=== PATIENT | female | born 1970 | race Caucasian/White ===

== ENCOUNTER 2017-01-20 22:32 | Emergency (ER) | payer OTHER ==
[2017-01-20 22:45] VITALS: BMI 30.6
--- NOTE | 2017-01-20 23:14 | PDOC ---
History of Present Illness - General History Source: Patient Exam Limitations: No Limitations - History of Present Illness Initial Comments: 01/20/17 23:26 The patient is a 68 year old female with significant past medical history of hypertension and diabetes who presents to the ED with 2 days of numbness to the left side of the face and left arm. Patient reports she was in her usual state of health when she suddenly felt numbness to her left side of the face and left arm. She describes the numbness as a pins and needle sensation. Patient denies weakness, facial droop, slurred speech, or bladder/bowel incontinence. She states when the numbness is around her lips it makes her lips feel inflamed. Patient also reports a headache yesterday that resolved on its own. 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 The patient denies fever, chills, cough, SOB, chest pain, and palpitations. The patient denies abdominal pain, nausea, vomiting, and diarrhea. Allergies: NKDA Social History: No alcohol, tobacco, or drug use reported. Past Surgical History: appendectomy PCP: None reported <Perri oTm - Last Filed: 01/21/17 00:15> - General History Source: Patient <Ramiro Woodson - Last Filed: 01/21/17 01:38> - General Chief Complaint: CVA/TIA Stated Complaint: NUMBNESS Time Seen by Provider: 01/20/17 23:13 NIH Stroke Scale - Last Known Well Date/Time & Onset Date Last Known Well: 01/19/17 Time Last Known Well: 08:00 - Initial Evaluation Level of consciousness: Alert Ask patient the month and their age: Answers both correctly Ask patient to open & close eyes; make fist and let go: Obeys both correctly Best gaze (horizontal eye movement): Normal Visual field testing: No visual field loss (Pt blind in left eye.) Facial paresis (Show teeth/raise eyebrows/close eyes tight): Normal symmetrical movement Motor Function: Left Arm: Normal Motor Function: Right Arm: Normal (extends arm 90 (or 45) degrees for 10 seconds without drift Motor Function: Left Leg: Normal (extends leg 30 degrees for 5 seconds without drift) Motor Function: Right Leg: Normal (extends leg 30 degrees for 5 seconds without drift) Limb Ataxia: No ataxia Sensory(Use pinprick test arms,legs,trunk,face/side to side): Normal Best language (Describe picture, name items, read sentences): No Aphasia Dysarthria (read several words): Normal articulation Extinction and Inattention: No abnormality - Total Score NIH Stroke Scale Score: 0 <Ramiro Woodson - Last Filed: 01/21/17 01:38> tPA Exclusion checklist 3-4.5h - Time Elapsed Date last known well: 01/19/17 Time last known well: 08:17 Elaspsed time: 1 Day(s) and 17 Hour(s) and 17 Minutes - Thrombolytic Therapy Candidate Is patient eligible for thrombolytic therapy: No - Exclusion Criteria 3-4.5 hr SBP greater than 185 or DBP greater than 110mmHg despite tx: Yes Recent IC/spinal surgery,head trauma or stroke<3mos.: No Hx IC hemorrhage, IC neoplasm, AV malformation or aneurysm: No Active internal bleeding: No Blding diathesis(low plt ct, inc PTT,INR>1.7 or use of NOAC): No CT demonstrates multilobar infarct(>1/3 cerebral hemiphere): No Arterial puncture at noncompressible site in previous 7 days: No Blood glucose concentration less than 50mg/dL (2.7mmol/L): No - Relative Exclusion Criteria 3-4.5 hr Life expectancy <1 yr or severe co-morbid illness: No : No Patient/family refused: No Rapid improvement: No Stroke severity too mild: No Recent acute KS (w/in previous 3 months): No Seizure at onset with postictal residual neuro impairments: No Major surgery or serious trauma w/in previous 14 days: No - Add'l Relative Exclusion 3-4.5 hr Age > 80: No Hx of both diabetes AND prior ischemic stroke: No Taking an oral anticoagulant regardless of INR: No NIHSS >25: No - Ineligibility reason(s) Reasons No tPA given: Outside of window - delayed arrival, See reason(s) noted above (diastolic BP is 115) <Ramiro Woodson - Last Filed: 01/21/17 01:38> Past History <Perri Tom - Last Filed: 01/21/17 00:15> - Past Medical History Diabetes: Yes HTN: Yes - Surgical History Appendectomy: Yes - Psycho/Social/Smoking Cessation Hx Anxiety: No Suicidal Ideation: No Smoking History: Never smoked Hx Alcohol Use: No Drug/Substance Use Hx: No Substance Use Type: None <Ramiro Woodson - Last Filed: 01/21/17 01:38> - Past Medical History Allergies/Adverse Reactions: Allergies Allergy/AdvReac Type Severity Reaction Status Date / Time No Known Allergies Allergy Verified 01/20/17 22:42 Home Medications: Ambulatory Orders Lisinopril [Prinivil -] 40 mg PO DAILY 07/14/16 Metformin HCl 500 mg PO BID 07/14/16 Review of Systems - Review of Systems Able to Perform ROS?: Yes Comments:: 01/20/17 23:26 CONSTITUTIONAL: Absent: fever, chills, diaphoresis, generalized weakness, malaise, loss of appetite HEENT: Absent: rhinorrhea, nasal congestion, throat pain, throat swelling, difficulty swallowing, mouth swelling, ear pain, eye pain, visual Changes CARDIOVASCULAR: Absent: chest pain, syncope, palpitations, irregular heart rate, lightheadedness , peripheral edema RESPIRATORY: Absent: cough, shortness of breath, dyspnea with exertion, orthopnea, wheezing, stridor, hemoptysis GASTROINTESTINAL: Absent: abdominal pain, abdominal distension, nausea, vomiting, diarrhea, constipation, melena, hematochezia GENITOURINARY: Absent: dysuria, frequency, urgency, hesitancy, hematuria, flank pain, genital pain MUSCULOSKELETAL: Absent: myalgia, arthralgia, joint swelling SKIN: Absent: rash, itching, pallor HEMATOLOGIC/IMMUNOLOGIC: Absent: easy bleeding, easy bruising, lymphadenopathy, frequent infections ENDOCRINE: Absent: unexplained weight gain, unexplained weight loss, heat intolerance, cold intolerance NEUROLOGIC: +numbness in the left-side of the face and left arm, headache Absent: focal weakness, dizziness, unsteady gait, seizure, mental status changes, bladder or bowel incontinence PSYCHIATRIC: Absent: anxiety, depression, suicidal or homicidal ideation, hallucinations. <Perri Tom - Last Filed: 01/21/17 00:15> *Physical Exam - Vital Signs Last Vital Signs Temp Pulse Resp BP Pulse Ox 97.7 F 67 18 197/115 99 01/20/17 22:43 01/20/17 22:43 01/20/17 22:43 01/20/17 22:43 01/20/17 22:43 - Physical Exam Comments: 01/20/17 23:26 GENERAL: Well developed, well nourished. Awake and alert. No acute distress. HEENT: Normocephalic, atraumatic. PERRLA, EOMI in the right eye. No vision in the left eye. No conjunctival pallor. Sclera are non-icteric. Moist mucous membranes. Oropharynx is clear. NECK: Supple. Full ROM. No JVD. Carotid pulses 2+ and symmetric, without bruits. No thyromegaly. No lymphadenopathy. CARDIOVASCULAR: Regular rate and rhythm. No murmurs, rubs, or gallops. Distal pulses are 2+ and symmetric. PULMONARY: No evidence of respiratory distress. Lungs clear to auscultation bilaterally. No wheezing, rales or rhonchi. ABDOMINAL: Soft. Non-tender. Non-distended. No rebound or guarding. No organomegaly. Normoactive bowel sounds. MUSCULOSKELETAL Normal range of motion at all joints. No bony deformities or tenderness. No CVA tenderness. EXTREMITIES: No cyanosis. No clubbing. No edema. No calf tenderness. SKIN: Warm and dry. Normal capillary refill. No rashes. No jaundice. NEUROLOGICAL: Alert, awake, appropriate. Cranial nerves 2-12 intact. No deficits to light touch and temperature in face, upper extremities and lower extremities. No motor deficits in the in face, upper extremities and lower extremities. Normoreflexic in the upper and lower extremities. Normal speech. PSYCHIATRIC: Cooperative. Good eye contact. Appropriate mood and affect. <Perri Tom - Last Filed: 01/21/17 00:15> - Vital Signs Last Vital Signs Temp Pulse Resp BP Pulse Ox 97.7 F 67 18 197/115 99 01/20/17 22:43 01/20/17 22:43 01/20/17 22:43 01/20/17 22:43 01/20/17 22:43 <Ramiro Woodson - Last Filed: 01/21/17 01:38> Heart Score/ECG Review - ECG Impressions Comment:: 01/21/17 00:15 NSR @65bpm Cannot r/o Anterior infarct, age undetermined Abnormal ECG <Perri Tom - Last Filed: 01/21/17 00:15> ED Treatment Course - LABORATORY CBC & Chemistry Diagram: 01/20/17 23:40 01/20/17 23:40 <Perri Tom - Last Filed: 01/21/17 00:15> - LABORATORY CBC & Chemistry Diagram: 01/20/17 23:40 01/20/17 23:40 <Ramiro Woodson - Last Filed: 01/21/17 01:38> Medical Decision Making - Medical Decision Making 01/21/17 01:34 Dr. Woodson: The scribe's documentation has been prepared under my direction and personally reviewed by me in its entirery. I confirm that the note above accurately reflects all work, treatment, procedures, and medical decision making performed by me. BP now is 130's/80's after treatment Pt is labs and Ct scan are all negative. Pt be discharged and follow ujp with her pcp to discuss BP control. <Ramiro Woodson - Last Filed: 01/21/17 01:38> *DC/Admit/Observation/Transfer - Attestations Scribe Attestion: 01/20/17 23:27 Documentation prepared by Perri Tom, acting as esthetician and manager medical spa for Ramiro Woodson MD <Perri Tom - Last Filed: 01/21/17 00:15> - Discharge Dispostion Admit: No <Ramiro Woodson - Last Filed: 01/21/17 01:38> Diagnosis at time of Disposition: Hypertension Qualifiers: Hypertension type: essential hypertension Qualified Code(s): I10 - Essential ( primary) hypertension - Discharge Dispostion Disposition: HOME Condition at time of disposition: Stable - Referrals Referrals: Jens Reico MD [Staff Physician] - - Patient Instructions Printed Discharge Instructions: High Blood Pressure Additional Instructions: continue taking your medication. Follow up with your doctor as soon as possible to discuss your blood pressure medication
[2017-01-21 00:03] LABS: BASOPHIL 0.9 % (0-2.0); EOSINOPHIL 10.5 % (0-4.5); MCH 29.8 pg (25.7-33.7); MCHC 33.4 g/dl (32.0-36.0); MEAN CELL VOLUME 89.5 fl (80-96); NEUTROPHILS 44.6 % (42.8-82.8); PLATELET COUNT 182 K/MM3 (134-434); RDW 13.7 % (11.6-15.6); WHITE BLOOD COUNT 7.4 K/mm3 (4.0-10.0)
[2017-01-21 00:28] LABS: INR 0.93 (0.82-1.09); PROTHROMBIN TIME (PATIENT) 10.2 SEC (9.98-11.88)
[2017-01-21 00:39] LABS: ALBUMIN 3.7 g/dl (3.4-5.0); ANION GAP 10 (8-16); CALCIUM 8.5 mg/dL (8.5-10.1); CO2 27 mmol/L (21-32); CREATININE 0.8 mg/dL (0.55-1.02); GLUCOSE,RANDOM 178 mg/dL (74-106); SGOT/AST 21 U/L (15-37); SGPT/ALT 40 U/L (12-78)
[2017-01-21 00:42] LABS: ALK PHOS 125 U/L (45-117); BILIRUBIN,TOTAL 0.4 mg/dL (0.2-1.0); TOT PROT 6.7 g/dl (6.4-8.2); TROPONIN I 0.02 ng/ml (0.00-0.05)
[2017-01-21] MEDS ORDERED: hydrALAZINE HCL 20 MG/ML VIAL IVPUSH ONE (01:10)
[2017-01-21 01:11] VITALS: PULSE 66; TEMP 98
[2017-01-21] MEDS ORDERED: hydrALAZINE HCL 20 MG/ML VIAL ONE (01:12)
[2017-01-21 01:31] VITALS: BP 120/78
--- NOTE | 2017-01-21 10:48 | EKG ---
Test Reason : Blood Pressure : / mmHG Vent. Rate : 065 BPM Atrial Rate : 065 BPM P-R Int : 178 ms QRS Dur : 088 ms QT Int : 424 ms P-R-T Axes : 030 006 008 degrees QTc Int : 440 ms NORMAL SINUS RHYTHM CANNOT RULE OUT ANTERIOR INFARCT , AGE UNDETERMINED ABNORMAL ECG WHEN COMPARED WITH ECG OF 14-JUL-2016 16:49, NO SIGNIFICANT CHANGE WAS FOUND Confirmed by VANESA ROME, ÁNGELA ([id number]) on 01/21/2017 10:47:30 AM Referred By: Confirmed By:ÁNGELA ALEXIS MD
== END 2017-01-21 01:48 | disposition home or self-care (01) ==
LOC: JER 22:32
PROC: 3E033GC Introduction of Other Therapeutic Substance into Peripheral Vein, Percutaneous Approach (ICD-10-PCS; principal; 2017-01-20)
DX: I10 Essential (primary) hypertension (principal); E11.9 Type 2 diabetes mellitus without complications; H54.42 Blindness, left eye, normal vision right eye
CPT/HCPCS: 36415; 70450-TC; 80053; 82550; 82553; 84484; 85025; 85610; 93005; 93010; 99283-25

== ENCOUNTER 2018-08-17 09:01 | Emergency (ER) | payer SELFPAY ==
[2018-08-17 09:06] VITALS: BP 166/89; PULSE 56; TEMP 98; BMI 33.3
[2018-08-17] MEDS ORDERED: KETOROLAC TROMETHAMINE 30 MG/1 ML VIAL IVPUSH ONE (10:59)
[2018-08-17] MEDS ORDERED: SODIUM CHLORIDE 1,000 ML IV STA (10:59)
[2018-08-17] MEDS ORDERED: TAMSULOSIN HCL 0.4 MG CAP.ER.24H (FP) PO ONE ×2 (10:59→11:00)
--- NOTE | 2018-08-17 11:11 | PDOC ---
History of Present Illness - General Chief Complaint: Pain, Acute Stated Complaint: LEFT FLANK PAIN, HX OF KIDNEY STONE Time Seen by Provider: 08/17/18 10:34 History Source: Patient - History of Present Illness Timing/Duration: reports: getting worse Quality: reports: severe Past History - Past Medical History Allergies/Adverse Reactions: Allergies Allergy/AdvReac Type Severity Reaction Status Date / Time No Known Allergies Allergy Verified 08/17/18 12:33 Home Medications: Ambulatory Orders Lisinopril [Prinivil -] 40 mg PO DAILY 07/14/16 metFORMIN HCL [Metformin HCl] 500 mg PO BID 07/14/16 Cyclobenzaprine HCl [Flexeril -] 10 mg PO TID #9 tablet 08/17/18 Ibuprofen [Motrin -] 2 tab PO Q6H #30 tablet 08/17/18 Tramadol HCl 50 mg PO Q6H #15 tablet MDD 200mg 08/17/18 COPD: No DVT: No Diabetes: Yes HTN: Yes Kidney Stones: Yes - Surgical History Appendectomy: Yes - Suicide/Smoking/Psychosocial Hx Smoking History: Never smoked Information on smoking cessation initiated: No Hx Alcohol Use: No Drug/Substance Use Hx: No Substance Use Type: None Review of Systems - Review of Systems Constitutional: No: Chills, Fever ABD/GI: No: Nausea, Vomiting : Yes: Flank Pain. No: Burning, Dysuria, Discharge, Hematuria *Physical Exam - Vital Signs Last Vital Signs Temp Pulse Resp BP Pulse Ox 98 F 56 L 18 166/89 98 08/17/18 09:03 08/17/18 09:03 08/17/18 09:03 08/17/18 09:03 08/17/18 09:03 - Physical Exam General Appearance: Yes: Appropriately Dressed, Moderate Distress HEENT: positive: Normal Voice Neck: positive: Supple Respiratory/Chest: negative: Respiratory Distress Gastrointestinal/Abdominal: positive: Tender (to L flank), Soft. negative: Distended, Guarding Musculoskeletal: positive: CVA Tenderness (L) Integumentary: positive: Dry, Warm Neurologic: positive: Fully Oriented, Alert, Normal Mood/Affect ED Treatment Course - LABORATORY CBC & Chemistry Diagram: 08/17/18 11:20 08/17/18 11:20 - RADIOLOGY Radiology Studies Ordered: Category Date Time Status ABDOMEN & PELVIS CT W/O CONTR [CT] Stat CT Scan 08/17/18 10:59 Ordered Medical Decision Making - Medical Decision Making 08/17/18 11:09 48-year-old female, no significant history, presents with left flank pain 2 weeks. No nausea, vomiting, dysuria, change in bowel movements, fever or chills. No known trauma. Seen at [facility] last week for same and diagnosed with kidney stone on CAT scan, but does not remember location of stone per pt. On Motrin at home with no relief. Sent to ED for another CAT scan by her urologist, Dr. Newman See exam Renal colic Dx w/ L renal stone on CT last week at [facility] No dysuria n/v/f/c -pain control -IVF -labs -CT 08/17/18 14:[address] unremarkable. Pt better w/ meds. Will dc w/ pain control for possible MSK back pain. Instructed to f/u with PMD *DC/Admit/Observation/Transfer Diagnosis at time of Disposition: Low back pain Qualifiers: Chronicity: acute Back pain laterality: left Sciatica presence: without sciatica Qualified Code(s): M54.5 - Low back pain - Discharge Dispostion Disposition: HOME Condition at time of disposition: Improved - Prescriptions Prescriptions: Cyclobenzaprine HCl [Flexeril -] 10 mg PO TID #9 tablet Ibuprofen [Motrin -] 2 tab PO Q6H #30 tablet Tramadol HCl 50 mg PO Q6H #15 tablet MDD 200mg - Referrals - Patient Instructions Printed Discharge Instructions: Low Back Pain Additional Instructions: Your blood work and CAT scan were normal today. The cause of your back pain could possibly be muscular. Take medications as prescribed and follow-up with your PMD if pain persists - Post Discharge Activity
--- NOTE | 2018-08-17 11:19 | PDOC ---
*Physical Exam - Vital Signs Last Vital Signs Temp Pulse Resp BP Pulse Ox 98 F 56 L 18 166/89 98 08/17/18 09:03 08/17/18 09:03 08/17/18 09:03 08/17/18 09:03 08/17/18 09:03 - Physical Exam Comments: 08/17/18 11:18 The patient was examined by [ROCIO Esteves] under my direct supervision. I personally evaluated the patient. I concur with the above findings and the plan of care.
[2018-08-17 11:53] LABS: BASO % 1.4 % (0-2.0); EOS % 12.9 % (0-4.5); HEMATOCRIT 40.3 % (32.4-45.2); HEMOGLOBIN 13.4 GM/dL (10.7-15.3); LYMPH % 38.2 % (8-40); MCH 29.2 pg (25.7-33.7); MCHC 33.3 g/dl (32.0-36.0); MEAN CELL VOLUME 87.6 fl (80-96); MEAN PLT VOLUME 10.3 fl (7.5-11.1); MONO % 6.3 % (3.8-10.2); NEUT % 41.2 % (42.8-82.8); PLATELET COUNT 216 K/MM3 (134-434); RDW 13.7 % (11.6-15.6); WHITE BLOOD COUNT 6.2 K/mm3 (4.0-10.0)
[2018-08-17 11:54] LABS: URINE APPEARANCE CLEAR; URINE BILIRUBIN NEGATIVE (<2.0 mg/dL); URINE COLOR STRAW; URINE GLUCOSE (UA) NEGATIVE (NEGATIVE); URINE KETONE NEGATIVE (NEGATIVE); URINE LEUK ESTERASE NEGATIVE (NEGATIVE); URINE NITRITE NEGATIVE (NEGATIVE); URINE PROTEIN NEGATIVE (NEGATIVE); URINE UROBILINOGEN NEGATIVE mg/dL (0.2-1.0)
[2018-08-17] MEDS ORDERED: KETOROLAC TROMETHAMINE 30 MG/1 ML VIAL ONE (12:06)
[2018-08-17] MEDS ORDERED: TAMSULOSIN HCL 0.4 MG CAP.ER.24H (FP) ONE (12:06)
[2018-08-17 12:58] LABS: ALBUMIN 3.9 g/dl (3.4-5.0); ALK PHOS 103 U/L (45-117); ANION GAP 9 MMOL/L (8-16); BILIRUBIN,TOTAL 0.6 mg/dL (0.2-1); BLOOD UREA NITROGEN 12 mg/dL (7-18); CALCIUM 9.2 mg/dL (8.5-10.1); CHLORIDE 108 mmol/L (98-107); CO2 22 mmol/L (21-32); CREATININE 0.7 mg/dL (0.55-1.3); GLUCOSE,RANDOM 173 mg/dL (74-106); POTASSIUM 4.4 mmol/L (3.5-5.1); SGOT/AST 23 U/L (15-37); SGPT/ALT 45 U/L (13-61); SODIUM 140 mmol/L (136-145); TOT PROT 7.4 g/dl (6.4-8.2)
[2018-08-17] MEDS ORDERED: traMADol HCL 50 MG TABLET PO ONE (14:57)
[2018-08-17] MEDS ORDERED: traMADol HCL 50 MG TABLET ONE (15:13)
== END 2018-08-17 15:30 | disposition home or self-care (01) ==
LOC: JER 09:01
PROC: 3E0333Z Introduction of Anti-inflammatory into Peripheral Vein, Percutaneous Approach (ICD-10-PCS; principal; 2018-08-17)
PROC: 3E0337Z Introduction of Electrolytic and Water Balance Substance into Peripheral Vein, Percutaneous Approach (ICD-10-PCS; 2018-08-17)
DX: M54.5 Low back pain (principal)
CPT/HCPCS: 36415; 74176-TC; 80053; 81003; 84703; 85025; 99282-25; J7030

== ENCOUNTER 2018-09-13 15:16 | Emergency (ER) | payer SELFPAY ==
[2018-09-13 15:23] VITALS: BP 177/98; PULSE 86; TEMP 98; BMI 32.9
[2018-09-13] MEDS ORDERED: DIPHTH,PERTUSS(ACELL),TET 0.5 ML DISP.SYRIN IM ONE (15:24)
--- NOTE | 2018-09-13 15:24 | PDOC ---
Rapid Medical Evaluation Chief Complaint: Injury Time Seen by Provider: 09/13/18 15:22 Medical Evaluation: Allergies Allergy/AdvReac Type Severity Reaction Status Date / Time No Known Allergies Allergy Verified 09/13/18 15:21 09/13/18 15:22 Pt presents for laceration to L pinky finger. Cut with a knife just now. Unsure of last tetanus shot Exam: L 5th finger wrapped. Blood on the bandage Orders: Tetanus Pt to proceed to ED for further eval. Discharge Disposition - Diagnosis Laceration - Referrals - Patient Instructions - Post Discharge Activity
--- NOTE | 2018-09-13 15:58 | PDOC ---
History of Present Illness - General Chief Complaint: Injury Stated Complaint: INJURY, LT FINGER Time Seen by Provider: 09/13/18 15:22 - History of Present Illness Initial Comments: 09/13/18 15:54 48-year-old female with past medical history significant for diabetes and hypertension presents for a laceration of her left fifth digit. She states she was cutting potato and cut into her finger. She treated it with dry gauze and reported to the emergency room for evaluation Past History - Past Medical History Allergies/Adverse Reactions: Allergies Allergy/AdvReac Type Severity Reaction Status Date / Time No Known Allergies Allergy Verified 09/13/18 15:21 Home Medications: Ambulatory Orders Metoclopramide HCl 10 mg PO QID #30 tablet 03/15/15 Lisinopril [Prinivil -] 40 mg PO DAILY 07/14/16 metFORMIN HCL [Metformin HCl] 500 mg PO BID 07/14/16 Cyclobenzaprine HCl [Flexeril -] 10 mg PO TID #9 tablet 08/17/18 Ibuprofen [Motrin -] 2 tab PO Q6H #30 tablet 08/17/18 Tramadol HCl 50 mg PO Q6H #15 tablet MDD 200mg 08/17/18 Cephalexin [Keflex] 500 mg PO QID #20 capsule 09/13/18 COPD: No DVT: No Diabetes: Yes HTN: Yes Kidney Stones: Yes - Surgical History Appendectomy: Yes - Suicide/Smoking/Psychosocial Hx Smoking Status: No Smoking History: Never smoked Have you smoked in the past 12 months: No Number of Cigarettes Smoked Daily: 0 Hx Alcohol Use: No Drug/Substance Use Hx: No Substance Use Type: None Hx Substance Use Treatment: No Review of Systems - Review of Systems Integumentary: Yes: See HPI All Other Systems: Reviewed and Negative *Physical Exam - Vital Signs Last Vital Signs Temp Pulse Resp BP Pulse Ox 98.0 F 86 18 177/98 H 99 09/13/18 15:21 09/13/18 15:21 09/13/18 15:21 09/13/18 15:21 09/13/18 15:21 - Physical Exam Comments: 09/13/18 15:55 HEAD: NC/AT EYES: Conjuntiva clear MS: Full ROM in all joints without edema NEUROLOGIC: No gross sensory or motor deficits, NVID SKIN: Normal color and temperature no lesions or rashes Left fifth finger has been unwrapped, wound was inspected. There is a subcentimeter dermal avulsion at the nailbed. The distal half of the nail of the fifth digit is gone along with part of the nailbed. There are no a to approximate.Flexor and extensor tendon function are preserved 09/13/18 15:56 Medical Decision Making - Medical Decision Making 09/13/18 15:56 Tetanus was updated. Prophylactic antibiotics were phoned in. Patient is diabetic. Surgicel dressing was placed after the wound was aseptically cleaned with Betadine normal saline *DC/Admit/Observation/Transfer Diagnosis at time of Disposition: Laceration - Discharge Dispostion Disposition: HOME Condition at time of disposition: Stable Decision to Admit order: No - Referrals Referrals: Tabitha Arora MD [Primary Care Provider] - Alejandro Camacho MD [Staff Physician] - - Patient Instructions Additional Instructions: Please keep the dressing that was applied in the emergency room on for 48 hours. After 48 hours may take off the dressing and wash her hand with soap and water. Please follow-up with hand surgery for further evaluation and treatment options. As a as well as monitoring. I dose of prophylactic antibiotics sent here pharmacy please take the entire course. Tylenol and Mortin as directed for pain - Post Discharge Activity
== END 2018-09-13 16:01 | disposition home or self-care (01) ==
LOC: JERFT 15:16
PROC: 0HQGXZZ Repair Left Hand Skin, External Approach (ICD-10-PCS; principal; 2018-09-13)
PROC: 3E0234Z Introduction of Serum, Toxoid and Vaccine into Muscle, Percutaneous Approach (ICD-10-PCS; 2018-09-13)
DX: S61.317A Laceration without foreign body of left little finger with damage to nail, initial encounter (principal); W26.0XXA Contact with knife, initial encounter; Y93.G1 Activity, food preparation and clean up; Y92.030 Kitchen in apartment as the place of occurrence of the external cause; Y99.8 Other external cause status
CPT/HCPCS: 90715; 99281-25

== ENCOUNTER 2018-11-26 15:50 | Observation (INO) | payer SELFPAY ==
[2018-11-26 15:59] VITALS: BMI 32.5
--- NOTE | 2018-11-26 16:07 | PDOC ---
History of Present Illness - General Chief Complaint: Chest Pain Stated Complaint: CHEST PAIN Time Seen by Provider: 11/26/18 16:06 Past History - Past Medical History Allergies/Adverse Reactions: Allergies Allergy/AdvReac Type Severity Reaction Status Date / Time No Known Allergies Allergy Verified 11/26/18 15:55 Home Medications: Ambulatory Orders Metoclopramide HCl 10 mg PO QID #30 tablet 03/15/15 Lisinopril [Prinivil -] 40 mg PO DAILY 07/14/16 metFORMIN HCL [Metformin HCl] 500 mg PO BID 07/14/16 Cyclobenzaprine HCl [Flexeril -] 10 mg PO TID #9 tablet 08/17/18 Ibuprofen [Motrin -] 2 tab PO Q6H #30 tablet 08/17/18 Tramadol HCl 50 mg PO Q6H #15 tablet MDD 200mg 08/17/18 Cephalexin [Keflex] 500 mg PO QID #20 capsule 09/13/18 COPD: No DVT: No Diabetes: Yes HTN: Yes Kidney Stones: Yes - Surgical History Appendectomy: Yes - Immunization History Immunization Up to Date: Yes - Suicide/Smoking/Psychosocial Hx Smoking Status: No Smoking History: Never smoked Have you smoked in the past 12 months: No Number of Cigarettes Smoked Daily: 0 Information on smoking cessation initiated: No Hx Alcohol Use: No Drug/Substance Use Hx: No Substance Use Type: None Hx Substance Use Treatment: No *Physical Exam - Vital Signs Last Vital Signs Temp Pulse Resp BP Pulse Ox 98.5 F 95 H 18 194/121 H 98 11/26/18 15:56 11/26/18 15:56 11/26/18 15:56 11/26/18 15:56 11/26/18 15:56 Moderate Sedation - Procedure Monitoring Vital Signs: Procedure Monitoring Vital Signs Temperature 98.5 F 11/26/18 15:56 Pulse Rate 95 H 11/26/18 15:56 Respiratory Rate 18 11/26/18 15:56 Blood Pressure 194/121 H 11/26/18 15:56 O2 Sat by Pulse Oximetry (%) 98 11/26/18 15:56 *DC/Admit/Observation/Transfer - Referrals Referrals: Tabitha Arora MD [Primary Care Provider] - - Patient Instructions - Post Discharge Activity
[2018-11-26] MEDS ORDERED: ASPIRIN 81 MG CHEWABLE TABLETS PO ONE (16:24)
[2018-11-26] MEDS ORDERED: NITROGLYCERIN SUBLINGUAL 1/200 0.3 MG BTL SL ONE (16:25)
[2018-11-26] MEDS ORDERED: ASPIRIN 81 MG CHEWABLE TABLETS ONE (16:27)
--- NOTE | 2018-11-26 16:35 | PDOC ---
History of Present Illness - General Chief Complaint: Chest Pain Stated Complaint: CHEST PAIN Time Seen by Provider: 11/26/18 16:06 History Source: Patient - History of Present Illness Initial Comments: 11/26/18 16:30 Patient is a 48F with history of HTN, DM, and obesity here today complaining of chest pain that has been ongoing for the past week. Patient states that the pain was initially intermittent but became constant today so she came in. She denies any modifying factors to the pain. Denies associated shortness of breath , fevers, chills, nausea, vomiting. Denies leg swelling, recent travel, estrogen use, prior blood clots. Denies abdominal pain, leg swelling, dysuria. Patient does not know what medications she takes for blood pressure, thinks maybe lisinopril. Does not take insulin but is not taking medication for diabetes at home and does not know what it is. Past History - Past Medical History Allergies/Adverse Reactions: Allergies Allergy/AdvReac Type Severity Reaction Status Date / Time No Known Allergies Allergy Verified 11/26/18 15:55 Home Medications: Ambulatory Orders Metoclopramide HCl 10 mg PO QID #30 tablet 03/15/15 Lisinopril [Prinivil -] 40 mg PO DAILY 07/14/16 metFORMIN HCL [Metformin HCl] 500 mg PO BID 07/14/16 Cyclobenzaprine HCl [Flexeril -] 10 mg PO TID #9 tablet 08/17/18 Ibuprofen [Motrin -] 2 tab PO Q6H #30 tablet 08/17/18 Tramadol HCl 50 mg PO Q6H #15 tablet MDD 200mg 08/17/18 Cephalexin [Keflex] 500 mg PO QID #20 capsule 09/13/18 COPD: No DVT: No Diabetes: Yes HTN: Yes Kidney Stones: Yes - Surgical History Appendectomy: Yes - Immunization History Immunization Up to Date: Yes - Suicide/Smoking/Psychosocial Hx Smoking Status: No Smoking History: Never smoked Have you smoked in the past 12 months: No Number of Cigarettes Smoked Daily: 0 Information on smoking cessation initiated: No Hx Alcohol Use: No Drug/Substance Use Hx: No Substance Use Type: None Hx Substance Use Treatment: No Review of Systems - Review of Systems Comments:: 11/26/18 16:33 GENERAL/CONSTITUTIONAL: No fever or chills. No weakness. HEAD, EYES, EARS, NOSE AND THROAT: No change in vision. No sore throat. CARDIOVASCULAR: +chest pain No shortness of breath RESPIRATORY: No cough, wheezing, or hemoptysis. GASTROINTESTINAL: No nausea, vomiting, diarrhea or constipation. GENITOURINARY: No dysuria, frequency, or change in urination. MUSCULOSKELETAL: No joint or muscle swelling or pain. No neck or back pain. SKIN: No rash NEUROLOGIC: No headache, vertigo, loss of consciousness, or change in strength/ sensation. HEMATOLOGIC/LYMPHATIC: No anemia, easy bleeding, or history of blood clots. ALLERGIC/IMMUNOLOGIC: No hives or skin allergy. *Physical Exam - Vital Signs Last Vital Signs Temp Pulse Resp BP Pulse Ox 98.5 F 95 H 18 194/121 H 98 11/26/18 15:56 11/26/18 15:56 11/26/18 15:56 11/26/18 15:56 11/26/18 15:56 - Physical Exam Comments: 11/26/18 16:33 GENERAL: Awake, alert, and fully oriented, in no acute distress HEAD: No signs of trauma, normocephalic, atraumatic CHEST: ?increase in pain with palpation along left sternal border, no signs of trauma EYES: PERRLA, EOMI, sclera anicteric, conjunctiva clear ENT: Auricles normal inspection, hearing grossly normal, nares patent, oropharynx clear without exudates. Moist mucosa NECK: Normal ROM, supple, no lymphadenopathy, JVD, or masses LUNGS: No distress, speaks full sentences, clear to auscultation bilaterally HEART: Regular rate and rhythm, normal S1 and S2, prominent mid-systolic click ABDOMEN: Soft, nontender, normoactive bowel sounds. No guarding, no rebound. No masses EXTREMITIES: Normal inspection, Normal range of motion, no edema. No clubbing or cyanosis. NEUROLOGICAL: Cranial nerves II through XII grossly intact. Normal speech, normal gait, no focal sensorimotor deficits SKIN: Warm, Dry, normal turgor, no rashes or lesions noted. Moderate Sedation - Procedure Monitoring Vital Signs: Procedure Monitoring Vital Signs Temperature 98.5 F 11/26/18 15:56 Pulse Rate 95 H 11/26/18 15:56 Respiratory Rate 18 11/26/18 15:56 Blood Pressure 194/121 H 11/26/18 15:56 O2 Sat by Pulse Oximetry (%) 98 11/26/18 15:56 Heart Score/ECG Review - History History: Moderately suspicious - Electrocardiogram EKG: Normal - Age Age: 45-65 - Risk Factors Risk Factors Heart Score: Yes Hx Hypercholesterolemia, Yes Hx Hypertension, Yes Hx Diabetes Based on the list above the patient has:: >/=3 risk factors or Hx atherosclerotic disease - Troponin Troponin: </= normal limit - Score Heart Score - Total: 4 ED Treatment Course - LABORATORY CBC & Chemistry Diagram: 11/26/18 16:30 11/26/18 16:30 - RADIOLOGY Radiology Studies Ordered: Category Date Time Status CHEST X-RAY PORTABLE* [RAD] Stat Radiology 11/26/18 16:24 Ordered - Medications Given in the ED: ED Medications Discontinued Medications Generic Name Dose Route Start Last Admin Trade Name Freq PRN Reason Stop Dose Admin Aspirin 162 mg 11/26/18 16:24 11/26/18 16:28 Asa - PO 11/26/18 16:25 162 mg ONCE ONE Administration Nitroglycerin 0.3 mg 11/26/18 16:25 11/26/18 16:28 Nitrostat - SL 11/26/18 16:26 0.3 mg ONCE ONE Administration Medical Decision Making - Medical Decision Making 11/26/18 16:35 Patient is 48F with history of HTN, DM, obesity here today complaining of chest pain. Vitals notable for BP 190/120, vitals repeated and similar. PERC negative. EKG shows normal sinus rhythm with rate of 78. No st elevations/depressions. T wave inversion in III. Normal axis. Normal intervals. Will likely obs given blood pressure and chest pain. Admit if workup shows more obvious etiology. 11/26/18 17:05 BP 166/99, chest pain improved with nitro. 11/26/18 17:15 CBC normal. CMP reassuring, elevated glucose. Trop undetectable. HEART score 4, will tele obs. *DC/Admit/Observation/Transfer Diagnosis at time of Disposition: Chest pain - Discharge Dispostion Condition at time of disposition: Stable Decision to Admit order: Yes - Referrals Referrals: Tabitha Arora MD [Primary Care Provider] - - Patient Instructions - Post Discharge Activity
--- NOTE | 2018-11-26 16:38 | PDOC ---
Attending Attestation - HPI HPI: 11/26/18 16:40 The patient is a 48 year old female with a significant past medical history of hypertension, diabetes, and obesity who presents to the emergency department with chest pain for about 1 week. The patient states that when her chest pain first onset it was intermittent but, is now constant. She states that her chest pain is worsened with palpitations. She denies any shortness of breath, cough, or PE risk factors. The patient denies any other symptoms or complaints. Documentation prepared by Seb Polanco, acting as chief medical director for Simran Amezcua MD. - Physicial Exam PE: 11/26/18 17:01 GENERAL: The patient is in no acute distress. HEAD: Normal with no signs of trauma. EYES: (+)left eye abnormality. PERRLA, EOMI, sclera anicteric, conjunctiva clear. ENT: Ears normal, nares patent, oropharynx clear without exudates. Moist mucous membranes. NECK: Normal range of motion, supple without lymphadenopathy, JVD, or masses. LUNGS: Breath sounds equal, clear to auscultation bilaterally. No wheezes, and no crackles. HEART:Regular rate and rhythm, normal S1 and S2 without murmur, rub or gallop. ABDOMEN: Soft, nontender, normoactive bowel sounds. No guarding, no rebound. No masses palpable. EXTREMITIES: Normal range of motion, no edema. No clubbing or cyanosis. No erythema, or tenderness. NEUROLOGICAL: Cranial nerves II through XII grossly intact. Normal speech. No focal neurological deficits. MUSCULOSKELETAL: Back non-tender to palpation, no CVA tenderness SKIN: Warm, Dry, normal turgor, no rashes or lesions noted. <Seb Polanco - Last Filed: 11/26/18 17:01> - Resident Resident Name: Rober Holder - ED Attending Attestation I have performed the following: I have examined & evaluated the patient, The case was reviewed & discussed with the resident, I agree w/resident's findings & plan, Exceptions are as noted - Medical Decision Making 11/26/18 17:04 CXR - nml, weak inspiration EKG - no ischemic changes 11/26/18 17:05 Laboratory Tests 11/26/18 16:30 WBC 8.0 Hgb 13.3 Hct 38.4 Plt Count 209 11/26/18 17:20 Laboratory Tests 11/26/18 11/26/18 16:30 16:30 INR 0.99 Sodium 137 Potassium 3.8 Chloride 102 Carbon Dioxide 29 BUN 14 Creatinine 0.9 Random Glucose 181 H Creatine Kinase 176 Troponin I < 0.02 Will admit to hospitalist service <Simran Amezcua - Last Filed: 11/30/18 07:24>
[2018-11-26 16:46] LABS: EOS % 12.5 % (0-4.5); HEMATOCRIT 38.4 % (32.4-45.2); HEMOGLOBIN 13.3 GM/dL (10.7-15.3); LYMPH % 30.8 % (8-40); MCH 29.8 pg (25.7-33.7); MCHC 34.7 g/dl (32.0-36.0); MEAN CELL VOLUME 85.8 fl (80-96); MONO % 5.3 % (3.8-10.2); NEUT % 50.4 % (42.8-82.8); PLATELET COUNT 209 K/MM3 (134-434); RBC 4.47 M/mm3 (3.60-5.2); RDW 13.5 % (11.6-15.6)
[2018-11-26 17:10] LABS: ALBUMIN 4.1 g/dl (3.4-5.0); ALK PHOS 130 U/L (45-117); ANION GAP 6 MMOL/L (8-16); BILIRUBIN,TOTAL 0.5 mg/dL (0.2-1); BLOOD UREA NITROGEN 14 mg/dL (7-18); CALCIUM 9.3 mg/dL (8.5-10.1); CHLORIDE 102 mmol/L (98-107); CO2 29 mmol/L (21-32); CREATININE 0.9 mg/dL (0.55-1.3); GLUCOSE,RANDOM 181 mg/dL (74-106); MAGNESIUM 2.1 mg/dL (1.8-2.4); POTASSIUM 3.8 mmol/L (3.5-5.1); SGOT/AST 23 U/L (15-37); SGPT/ALT 44 U/L (13-61); SODIUM 137 mmol/L (136-145); TOT PROT 7.3 g/dl (6.4-8.2)
[2018-11-26 17:14] LABS: INR 0.99 (0.83-1.09); PROTHROMBIN TIME (PATIENT) 11.7 SEC (9.7-13.0)
[2018-11-26] MEDS ORDERED: ACETAMINOPHEN 325 MG TABLET (FP) PO PRN (18:01)
[2018-11-26] MEDS ORDERED: traMADol HCL 50 MG TABLET PO PRN (18:03)
--- NOTE | 2018-11-26 18:10 | HP ---
Admitting History and Physical - Primary Care Physician PCP: Tabitha Arora - Admission Chief Complaint: I'm having chest pain x2 weeks History of Present Illness: Ms Serna is a 48 year old female who comes in with 2 weeks of chest pain. She says that it started as a sharp pain that would last only a few seconds but over the past 2 days it has been constant. She says that it is located in the left side of her chest and does not radiate. At its worst it is 8/10. It is sharp in nature and is reproducible, but sometimes it is pressure like. It is associated with lightheadedness, shortness of breath, weakness, and palpitations. She denies syncope, feeling of anxiety, fluttering, nausea, or vomiting. She says it has never happened before. She also denies coughing, abdominal pain, diarrhea, constipation, difficulty or pain on urination, or swelling. She stopped taking her blood pressure medication this week for an undisclosed reason. Her chest pain improved with nitro but now she has a headache. 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 - Smoking History Smoking history: Never smoked Have you smoked in the past 12 months: No Aproximately how many cigarettes per day: 0 - Alcohol/Substance Use Hx Alcohol Use: No History of Substance Use: reports: None - Social History Usual Living Arrangement: Yes: With Child ADL: Independent History of Recent Travel: No Home Medications - Allergies Allergies/Adverse Reactions: Allergies Allergy/AdvReac Type Severity Reaction Status Date / Time No Known Allergies Allergy Verified 11/26/18 15:55 - Home Medications Home Medications: Ambulatory Orders Metoclopramide HCl 10 mg PO QID #30 tablet 03/15/15 Lisinopril [Prinivil -] 40 mg PO DAILY 07/14/16 metFORMIN HCL [Metformin HCl] 500 mg PO BID 07/14/16 Cyclobenzaprine HCl [Flexeril -] 10 mg PO TID #9 tablet 08/17/18 Ibuprofen [Motrin -] 2 tab PO Q6H #30 tablet 08/17/18 Tramadol HCl 50 mg PO Q6H #15 tablet MDD 200mg 08/17/18 Cephalexin [Keflex] 500 mg PO QID #20 capsule 09/13/18 Family Disease History - Family Disease History Family Disease History: Diabetes: Father (HTN) Review of Systems Findings/Remarks: Full review of systems obtained, as per HPI and otherwise negative Physical Examination Vital Signs: Vital Signs Temperature 36.9 C 11/26/18 15:56 Pulse Rate 64 11/26/18 17:59 Respiratory Rate 18 11/26/18 17:59 Blood Pressure 169/99 11/26/18 17:59 O2 Sat by Pulse Oximetry (%) 97 11/26/18 17:59 Constitutional: Yes: No Distress, Calm, Obese Eyes: Yes: Conjunctiva Clear (R eye), EOM Intact (R eye), PERRL (R eye) Cardiovascular: Yes: Regular Rate and Rhythm. No: Gallop, Murmur, Rub Respiratory: Yes: Regular, CTA Bilaterally. No: Rales, Rhonchi, Wheezes Gastrointestinal: Yes: Normal Bowel Sounds, Soft. No: Distention, Tenderness Extremities: Yes: WNL Edema: No Labs: CBC, BMP 11/26/18 16:30 11/26/18 16:30 Imaging - Results Chest X-ray: Report Reviewed, Image Reviewed EKG: Image Reviewed Problem List - Problems (1) Chest pain Assessment/Plan: -pain is reproducible on exam -also pain itself sound atypical -however concerning since having lightheadedness and shortness of breath -also hypertensive today and history of diabetes -admit to telemetry -cardiac enzymes x3 -check lipid panel in am -place on oxygen, aspirin, and metoprolol -check TSH and FT4 since complains of fatigue -continue lisinopril -suspect patient will need stress test and ECHO since has not had before -will consult cardiology to see if should be done this hospitalization or if safe to perform as outpatient if rules out Code(s): R07.9 - CHEST PAIN, UNSPECIFIED (2) Diabetes Assessment/Plan: -on metformin as an outpatient -will hold in case troponins become positive -diabetic diet and FSBS Code(s): E11.9 - TYPE 2 DIABETES MELLITUS WITHOUT COMPLICATIONS (3) Hypertension Assessment/Plan: -continue lisinopril, patient does not know dose -per records possibly on 40mg daily -will place on lisinopril 20mg bid -add metoprolol 25mg bid Code(s): I10 - ESSENTIAL (PRIMARY) HYPERTENSION Qualifiers: Hypertension type: essential hypertension Qualified Code(s): I10 - Essential (primary) hypertension
[2018-11-26] MEDS ORDERED: ACETAMINOPHEN 325 MG TABLET (FP) ONE (21:56)
[2018-11-26] MEDS ORDERED: LISINOPRIL 20 MG TABLET (FP) ONE ×2 (21:56→21:57)
[2018-11-26] MEDS ORDERED: METOPROLOL TARTRATE 25 MG TABLET (FP) ONE (21:56)
[2018-11-26] MEDS ORDERED: METOPROLOL TARTRATE 25 MG TABLET (FP) PO SCH (22:00)
[2018-11-26] MEDS: LISINOPRIL 20 MG TABLET (FP) PO SCH (22:01)
[2018-11-26] MEDS: INSULIN SLIDING SCALE (NOVOLOG) 1 VIAL SQ SCH (22:01)
[2018-11-27] MEDS ORDERED: HEPARIN NA (PORCINE) 5,000 UNITS/ML 1ML VIAL ONE (05:52)
[2018-11-27] MEDS ORDERED: HEPARIN NA (PORCINE) 5,000 UNITS/ML 1ML VIAL SQ SCH (06:00)
[2018-11-27] MEDS ORDERED: INSULIN (NOVOLOG) ASPART 100 UNITS/ML 10ML VIAL ONE (06:24)
[2018-11-27] MEDS: INSULIN SLIDING SCALE (NOVOLOG) 1 VIAL SQ SCH (06:26)
[2018-11-27 06:33] VITALS: TEMP 97.5
[2018-11-27 08:32] VITALS: BP 117/90; PULSE 85
[2018-11-27 08:42] LABS: EOS % 14.5 % (0-4.5); HEMATOCRIT 41.3 % (32.4-45.2); HEMOGLOBIN 13.3 GM/dL (10.7-15.3); LYMPH % 32.6 % (8-40); MCH 28.3 pg (25.7-33.7); MCHC 32.1 g/dl (32.0-36.0); MEAN CELL VOLUME 88.1 fl (80-96); MEAN PLT VOLUME 9.9 fl (7.5-11.1); MONO % 5.8 % (3.8-10.2); NEUT % 46.1 % (42.8-82.8); PLATELET COUNT 201 K/MM3 (134-434); RBC 4.69 M/mm3 (3.60-5.2); RDW 13.8 % (11.6-15.6); WHITE BLOOD COUNT 6.2 K/mm3 (4.0-10.0)
--- NOTE | 2018-11-27 08:43 | EKG ---
Test Reason : Blood Pressure : / mmHG Vent. Rate : 078 BPM Atrial Rate : 078 BPM P-R Int : 168 ms QRS Dur : 096 ms QT Int : 382 ms P-R-T Axes : 040 -12 015 degrees QTc Int : 435 ms NORMAL SINUS RHYTHM MINIMAL VOLTAGE CRITERIA FOR LVH, MAY BE NORMAL VARIANT BORDERLINE ECG WHEN COMPARED WITH ECG OF 20-JAN-2017 23:42, NO SIGNIFICANT CHANGE WAS FOUND Confirmed by DEBORAH ROME, TARI ([id number]) on 11/27/2018 8:43:38 AM Referred By: Confirmed By:TARI CABRERA MD
--- NOTE | 2018-11-27 09:01 | PN ---
Progress Note, Physician Chief Complaint: Ms Serna says she is feeling much better today. No longer having chest pain. Denies sob and n/v. - Current Medication List Current Medications: Active Medications Acetaminophen (Tylenol -) 650 mg PO Q4H PRN PRN Reason: PAIN LEVEL 1-5 Last Admin: 11/26/18 22:02 Dose: 650 mg Aspirin (Asa -) 81 mg PO DAILY [facility] Heparin Sodium (Porcine) (Heparin -) 5,000 unit SQ TID [facility] Last Admin: 11/27/18 05:56 Dose: 5,000 unit Insulin Aspart (Novolog Vial Sliding Scale -) 1 vial SQ ACHS [facility]; Protocol Last Admin: 11/27/18 06:26 Dose: 4 unit Lisinopril (Prinivil) 20 mg PO BID [facility] Last Admin: 11/26/18 22:01 Dose: 20 mg Tramadol HCl (Ultram -) 50 mg PO Q6H PRN PRN Reason: PAIN LEVEL 6-10 - Objective Vital Signs: Vital Signs Temperature 36.4 C L 11/27/18 06:32 Pulse Rate 85 11/27/18 08:31 Respiratory Rate 18 11/27/18 08:31 Blood Pressure 117/90 11/27/18 08:31 O2 Sat by Pulse Oximetry (%) 100 11/27/18 08:31 Constitutional: Yes: No Distress, Calm, Obese Cardiovascular: Yes: Regular Rate and Rhythm. No: Gallop, Murmur, Rub Respiratory: Yes: Regular, CTA Bilaterally. No: Rales, Rhonchi, Wheezes Gastrointestinal: Yes: Normal Bowel Sounds, Soft. No: Distention, Tenderness Extremities: Yes: WNL Edema: No Labs: CBC, BMP 11/27/18 08:00 INR, PTT INR 0.99 (0.83-1.09) 11/26/18 16:30 Problem List - Problems (1) Chest pain Code(s): R07.9 - CHEST PAIN, UNSPECIFIED (2) Diabetes Code(s): E11.9 - TYPE 2 DIABETES MELLITUS WITHOUT COMPLICATIONS (3) Hypertension Code(s): I10 - ESSENTIAL (PRIMARY) HYPERTENSION Qualifiers: Hypertension type: essential hypertension Qualified Code(s): I10 - Essential (primary) hypertension Assessment/Plan (1) Chest pain Assessment/Plan: -cardiac enzymes x2 negative -awaiting third troponin -awaiting evaluation from cardiology -considering risk factors, will need ECHO and stress test -however chest pain is atypical and if cardiac enzymes are negative suspect patient can have as outpatient but will await cardiology evaluation Code(s): R07.9 - CHEST PAIN, UNSPECIFIED (2) Diabetes Assessment/Plan: -on metformin as an outpatient -will hold in case troponins become positive -diabetic diet and FSBS -patient eating keli donuts, instructed her to eat a healthier diet Code(s): E11.9 - TYPE 2 DIABETES MELLITUS WITHOUT COMPLICATIONS (3) Hypertension Assessment/Plan: -continue lisinopril 20mg bid -well controlled, does not need metoprolol Code(s): I10 - ESSENTIAL (PRIMARY) HYPERTENSION Qualifiers: Hypertension type: essential hypertension Qualified Code(s): I10 - Essential (primary) hypertension
[2018-11-27 09:05] LABS: ANION GAP 6 MMOL/L (8-16); BLOOD UREA NITROGEN 12 mg/dL (7-18); CALCIUM 8.9 mg/dL (8.5-10.1); CHLORIDE 105 mmol/L (98-107); CO2 27 mmol/L (21-32); CREATININE 0.7 mg/dL (0.55-1.3); GLUCOSE,RANDOM 186 mg/dL (74-106); MAGNESIUM 2.4 mg/dL (1.8-2.4); PHOSPHOROUS 3.8 mg/dL (2.5-4.9); POTASSIUM 4.2 mmol/L (3.5-5.1); SODIUM 138 mmol/L (136-145)
[2018-11-27 09:27] LABS: N-TERMINAL BNP 18.2 pg/ml (5-125)
[2018-11-27] MEDS: LISINOPRIL 20 MG TABLET (FP) PO SCH (09:28)
[2018-11-27] MEDS ORDERED: ASPIRIN 81 MG CHEWABLE TABLETS PO SCH (10:00)
--- NOTE | 2018-11-27 10:22 | DS ---
Physical Examination Vital Signs: Vital Signs Temperature 36.4 C L 11/27/18 06:32 Pulse Rate 85 11/27/18 08:31 Respiratory Rate 18 11/27/18 08:31 Blood Pressure 117/90 11/27/18 08:31 O2 Sat by Pulse Oximetry (%) 100 11/27/18 08:31 Labs: CBC, BMP 11/27/18 08:00 11/27/18 08:00 Discharge Summary Reason For Visit: CHEST PAIN Current Active Problems Chest pain (Acute) Diabetes (Acute) Hospital Course: Please refer to progress note from today but in short Ms Serna is a 48 year old female who came in with atypical chest pain. She was admitted under observation. Cardiac enzymes x3 were sent and negative. She was monitored on telemetry and no abnormalities noted. Her blood pressure was controlled with lisinopril. She was started on aspirin. She is currently chest pain free. Case d /w cardiology as patient will need ECHO and stress test in the future, however this is not urgent and can be done as an outpatient. Patient agreed and would prefer to see her PCP to have this done. She was counselled on eating a healthy diet. She is safe for discharge home with follow up with her PCP. 32 minutes spent in preparation of this discharge. Condition: Stable - Instructions Diet, Activity, Other Instructions: low fat, diabetic diet. continue previous activity Referrals: Tabitha Arora MD [Primary Care Provider] - Disposition: HOME - Home Medications Comprehensive Discharge Medication List: Ambulatory Orders Metoclopramide HCl 10 mg PO QID #30 tablet 03/15/15 Lisinopril [Prinivil -] 40 mg PO DAILY 07/14/16 metFORMIN HCL [Metformin HCl] 500 mg PO BID 07/14/16 Cyclobenzaprine HCl [Flexeril -] 10 mg PO TID #9 tablet 08/17/18 Tramadol HCl 50 mg PO Q6H #15 tablet MDD 200mg 08/17/18 Aspirin [ASA -] 81 mg PO DAILY tab.chew 11/27/18
--- NOTE | 2018-11-27 11:05 | CON.CARD ---
Cardiology Consult (text) - Consultation Consultation Note: cc: cp hpi: 48 f hx htn, dm, here with cp, sob. Past month pt has noticed sob with rushing or going upstairs. Past few days has noticed a mild central sharp cp as well. CP worse with deep breaths and with palpation of chest wall. No rest sob, palps, loc pnd orthopnea le edema. No hx hrt dz. CP better now. No sob presently. pmh: per hpi psh: eye surgery social: no tob fam: no premature cad/scd ros: per hpi; no nvd fever cough gib hematuria dysuria muscle pain medS: Home Medications Medication Instructions Recorded Metoclopramide HCl 10 mg PO QID #30 tablet 03/15/15 Lisinopril [Prinivil -] 40 mg PO DAILY 07/14/16 metFORMIN HCL [Metformin HCl] 500 mg PO BID 07/14/16 Cyclobenzaprine HCl [Flexeril -] 10 mg PO TID #9 tablet 08/17/18 Tramadol HCl 50 mg PO Q6H #15 tablet MDD 200mg 08/17/18 Aspirin [ASA -] 81 mg PO DAILY tab.chew 11/27/18 pe: Vital Signs Period Temp Pulse Resp BP Sys/Booth Pulse Ox Last 24 Hr 97.5 F-98.5 F 64-95 16-18 111-194/65-121 97-100 nad no jvd rrr s1s2 no mrg cta bl nl eff aaox3 no le e/c/c abd nt nd pos bs no jaundice diaphoresis pos dp pt no carotid bruits +chest wall tenderness Laboratory Last Values WBC 6.2 K/mm3 (4.0-10.0) 11/27/18 08:00 RBC 4.69 M/mm3 (3.60-5.2) 11/27/18 08:00 Hgb 13.3 GM/dL (10.7-15.3) 11/27/18 08:00 Hct 41.3 % (32.4-45.2) 11/27/18 08:00 MCV 88.1 fl (80-96) 11/27/18 08:00 MCH 28.3 pg (25.7-33.7) 11/27/18 08:00 MCHC 32.1 g/dl (32.0-36.0) 11/27/18 08:00 RDW 13.8 % (11.6-15.6) 11/27/18 08:00 Plt Count 201 K/MM3 (134-434) 11/27/18 08:00 MPV 9.9 fl (7.5-11.1) 11/27/18 08:00 Absolute Neuts (auto) 2.8 K/mm3 (1.5-8.0) 11/27/18 08:00 Neutrophils % 46.1 % (42.8-82.8) 11/27/18 08:00 Lymphocytes % 32.6 % (8-40) 11/27/18 08:00 Monocytes % 5.8 % (3.8-10.2) 11/27/18 08:00 Eosinophils % 14.5 % (0-4.5) H 11/27/18 08:00 Basophils % 1.0 % (0-2.0) 11/27/18 08:00 Nucleated RBC % 0 % (0-0) 11/27/18 08:00 PT with INR 11.70 SEC (9.7-13.0) 11/26/18 16:30 INR 0.99 (0.83-1.09) 11/26/18 16:30 Sodium 138 mmol/L (136-145) 11/27/18 08:00 Potassium 4.2 mmol/L (3.5-5.1) 11/27/18 08:00 Chloride 105 mmol/L (98-107) 11/27/18 08:00 Carbon Dioxide 27 mmol/L (21-32) 11/27/18 08:00 Anion Gap 6 MMOL/L (8-16) L 11/27/18 08:00 BUN 12 mg/dL (7-18) 11/27/18 08:00 Creatinine 0.7 mg/dL (0.55-1.3) 11/27/18 08:00 Creat Clearance w eGFR > 60 (>60) 11/27/18 08:00 POC Glucometer 205.53964 UNITS (80-120) 11/27/18 06:21 Random Glucose 186 mg/dL (74-106) H 11/27/18 08:00 Calcium 8.9 mg/dL (8.5-10.1) 11/27/18 08:00 Phosphorus 3.8 mg/dL (2.5-4.9) 11/27/18 08:00 Magnesium 2.4 mg/dL (1.8-2.4) 11/27/18 08:00 Total Bilirubin 0.5 mg/dL (0.2-1) 11/26/18 16:30 AST 23 U/L (15-37) 11/26/18 16:30 ALT 44 U/L (13-61) 11/26/18 16:30 Alkaline Phosphatase 130 U/L (45-117) H 11/26/18 16:30 Creatine Kinase 110 IU/L (26-192) 11/27/18 08:55 Creatine Kinase Index 1.5 % (0.0-5.0) 11/26/18 16:30 CK-MB (CK-2) 2.7 ng/mL (0.5-3.6) 11/26/18 16:30 Troponin I < 0.02 ng/ml (0.00-0.05) 11/27/18 08:55 B-Natriuretic Peptide 18.2 pg/ml (5-125) 11/27/18 08:55 Total Protein 7.3 g/dl (6.4-8.2) 11/26/18 16:30 Albumin 4.1 g/dl (3.4-5.0) 11/26/18 16:30 Triglycerides 210 mg/dL (0-150) H 11/27/18 08:55 Cholesterol 222 mg/dL (50-200) H 11/27/18 08:55 Total LDL Cholesterol 156 mg/dL (5-100) H 11/27/18 08:55 HDL Cholesterol 39 mg/dL (40-60) L 11/27/18 08:55 TSH 1.03 uIU/ml (0.358-3.74) 11/27/18 08:55 Free T4 0.97 ng/dl (0.76-1.46) 11/27/18 08:55 mibi 02/2012: no ischemia, nl lvef echo 02/2012: nl lv/rv, mild mr cxr: clear lungs ecg: sr, nl intervals no ischemic changes a/p: 48 f hx htn, dm, here with cp, sob. cp: -cp atypical, seems msk -no signs acs, trop negx3, ecg unremarkable -cp resolved now, ok for dc from cardiac pov, pt can f/u outpt for possible echo /stress test sob: -no signs chf -likely deconditioning, obesity related, plan as above htn: -cont jerome-i dm: -on metformin
== END 2018-11-27 11:00 | disposition home or self-care (01) ==
LOC: JER 15:50 → JERBED 17:16
PROVIDERS: ADMIT Internal Medicine; ATTEND Internal Medicine
PROC: 3E013VG Introduction of Insulin into Subcutaneous Tissue, Percutaneous Approach (ICD-10-PCS; principal; 2018-11-26)
PROC: 3E013GC Introduction of Other Therapeutic Substance into Subcutaneous Tissue, Percutaneous Approach (ICD-10-PCS; 2018-11-26)
DX: R07.9 Chest pain, unspecified (principal); I10 Essential (primary) hypertension; E11.9 Type 2 diabetes mellitus without complications; E66.9 Obesity, unspecified; Z68.32 Body mass index [BMI] 32.0-32.9, adult; Z79.84 Long term (current) use of oral hypoglycemic drugs
CPT/HCPCS: 36415; 71045-TC-FY; 80048; 80053; 80061; 82550; 82553; 82962; 83721; 83735; 83880; 84100; 84439; 84443; 84484; 85025; 85610; 93005; 93010; 99285-25; G0378; J1644

== ENCOUNTER 2019-10-23 14:39 | Emergency (ER) | payer SELFPAY ==
[2019-10-23 15:03] VITALS: BP 111/74; PULSE 105; TEMP 98.6; BMI 31.6
--- NOTE | 2019-10-23 15:05 | PDOC ---
Rapid Medical Evaluation Time Seen by Provider: 10/23/19 15:00 Medical Evaluation: Allergies Allergy/AdvReac Type Severity Reaction Status Date / Time No Known Allergies Allergy Verified 11/26/18 15:55 10/23/19 15:00 Pt with PMH of DM, HTN presents to the ER for headache and body aches starting 30 minutes ago. Admits to associated dizzness and feels faint. Exam: AAOx3, lungs CTAB. No gross neuro deficits Orders: Labs, IV, EKG Pt to proceed to the ER for further evaluation Discharge Disposition - Diagnosis Weakness - Referrals - Patient Instructions - Post Discharge Activity
[2019-10-23] MEDS ORDERED: ACETAMINOPHEN 1000 MG/100 ML VIAL (NON FORMULARY) IVPB ONE (15:25)
[2019-10-23] MEDS ORDERED: SODIUM CHLORIDE 1,000 ML IV STA (15:25)
--- NOTE | 2019-10-23 15:25 | PDOC ---
History of Present Illness - General History Source: Patient, Family - History of Present Illness Timing/Duration: other Associated Symptoms: reports: fever/chills, malaise, nausea/vomiting, weakness. denies: cough, headaches, shortness of breath <Sánchez Esteves - Last Filed: 10/23/19 17:20> <Lucius Everett - Last Filed: 10/31/19 07:40> - General Chief Complaint: Cold Symptoms Stated Complaint: HEADACHE/WEAKNESS Time Seen by Provider: 10/23/19 15:00 Past History - Past Medical History COPD: No DVT: No Diabetes: Yes HTN: Yes Hypercholesterolemia: Yes Kidney Stones: Yes - Surgical History Appendectomy: Yes - Immunization History Immunization Up to Date: Yes - Psycho Social/Smoking Cessation Hx Smoking Status: No Smoking History: Never smoked Have you smoked in the past 12 months: No Number of Cigarettes Smoked Daily: 0 Information on smoking cessation initiated: No Hx Alcohol Use: No Drug/Substance Use Hx: No Substance Use Type: None Hx Substance Use Treatment: No <Sánchez Esteves - Last Filed: 10/23/19 17:20> <Lucius Everett - Last Filed: 10/31/19 07:40> - Past Medical History Allergies/Adverse Reactions: Allergies Allergy/AdvReac Type Severity Reaction Status Date / Time No Known Allergies Allergy Verified 10/23/19 15:03 Home Medications: Ambulatory Orders Metoclopramide HCl 10 mg PO QID #30 tablet 03/15/15 Lisinopril [Prinivil -] 40 mg PO DAILY 07/14/16 metFORMIN HCL [Metformin HCl] 500 mg PO BID 07/14/16 Cyclobenzaprine HCl [Flexeril -] 10 mg PO TID #9 tablet 08/17/18 Tramadol HCl 50 mg PO Q6H #15 tablet MDD 200mg 08/17/18 Aspirin [ASA -] 81 mg PO DAILY tab.chew 11/27/18 Review of Systems - Review of Systems Constitutional: Yes: Chills, Malaise HEENTM: No: Ear Pain, Throat Pain Respiratory: No: Cough, Shortness of Breath, Wheezing ABD/GI: Yes: Nausea. No: Diarrhea, Vomiting, Abdominal cramping : No: Dysuria <Sánchez Esteves - Last Filed: 10/23/19 17:20> *Physical Exam - Vital Signs Last Vital Signs Temp Pulse Resp BP Pulse Ox 98.6 F 105 H 20 111/74 98 10/23/19 14:59 10/23/19 14:59 10/23/19 14:59 10/23/19 14:59 10/23/19 14:59 - Physical Exam 10/23/19 15:33 ill soila General Appearance: Yes: Appropriately Dressed HEENT: positive: Normal ENT Inspection, Normal Voice, TMs Normal, Pharynx Normal. negative: Scleral Icterus (R), Scleral Icterus (L) Neck: positive: Supple. negative: Lymphadenopathy (R), Lymphadenopathy (L) Respiratory/Chest: positive: Lungs Clear, Normal Breath Sounds. negative: Respiratory Distress Cardiovascular: positive: Regular Rate, S1, S2 Gastrointestinal/Abdominal: positive: Soft. negative: Tender Musculoskeletal: negative: CVA Tenderness Integumentary: positive: Dry, Warm Neurologic: positive: Fully Oriented, Alert, Normal Mood/Affect <Sánchez Esteves - Last Filed: 10/23/19 17:20> - Vital Signs Last Vital Signs Temp Pulse Resp BP Pulse Ox 98.6 F 105 H 20 111/74 98 10/23/19 14:59 10/23/19 14:59 10/23/19 14:59 10/23/19 14:59 10/23/19 14:59 <Lucius Everett - Last Filed: 10/31/19 07:40> ED Treatment Course - LABORATORY CBC & Chemistry Diagram: 10/23/19 15:17 10/23/19 15:17 <Sánchez Esteves - Last Filed: 10/23/19 17:20> - LABORATORY CBC & Chemistry Diagram: 10/23/19 15:17 10/23/19 15:17 - ADDITIONAL ORDERS Additional order review: 10/23/19 10/23/19 15:40 15:17 RBC 4.43 MCV 88.1 MCHC 33.7 RDW 13.2 MPV 9.8 Neutrophils % 79.3 D Lymphocytes % 15.5 D Monocytes % 0.6 L D Eosinophils % 4.3 Basophils % 0.3 POC Glucometer 151 - Medications Given in the ED: ED Medications Discontinued Medications Generic Name Dose Route Start Last Admin Trade Name Freq PRN Reason Stop Dose Admin Acetaminophen 1,000 mg 10/23/19 15:25 10/23/19 15:52 Ofirmev Injection - IVPB 10/23/19 15:26 1,000 mg ONCE ONE Administration Sodium Chloride 1,000 mls @ 1,000 mls/hr 10/23/19 15:25 10/23/19 15:51 Normal Saline - IV 10/23/19 16:24 1,000 mls/hr ASDIR STA Administration <Lucius Everett - Last Filed: 10/31/19 07:40> Medical Decision Making - Medical Decision Making 10/23/19 15:21 49-year-old female history of hypertension, NIDDM, was in usual state of health until this afternoon when patient developed sudden onset chills with body aches , malaise, 1 e/o n/v and ? dizziness. Denies cough, chest pain, shortness of breath, headache, slurred speech, focal weakness or change in bowel movements. see exam Viral syndrome Mildly tachy and appears unwell -flu/labs/ekg/cxr -supportive tx in ED and reassess 10/23/19 16:10 10/23/19 16:50 EKG, CXR and labs all unremarkable. Flu neg. Patient appears much better and meagan po s/p IVF and meds. Rpt HR 90. Will dc with supportive treatment. Reasons to return discussed with patient and family <Sánchez Esteves - Last Filed: 10/23/19 17:20> - Medical Decision Making The patient was seen and evaluated in conjunction with ROCIO Esteves under my direct supervision, ancillary studies were reviewed. I agree with the plan as outlined by ROCIO Esteves . <Lucius Everett - Last Filed: 10/31/19 07:40> Discharge - Discharge Information Problems reviewed: Yes <Sánhcez Esteves - Last Filed: 10/23/19 17:20> <Lucius Everett - Last Filed: 10/31/19 07:40> - Discharge Information Clinical Impression/Diagnosis: Viral syndrome Condition: Improved Disposition: HOME - Patient Discharge Instructions Patient Printed Discharge Instructions: DI for Viral Syndrome Additional Instructions: You most likely have an viral illness which should run its course and get better. Rest, drink plenty fluids and take [id number] meds as needed Your EKX, CXR, labs and flu tests were negative
[2019-10-23] MEDS ORDERED: ACETAMINOPHEN INJECTION 100 ML IVPB ONE (15:40)
[2019-10-23 15:46] LABS: BASO % 0.3 % (0-2.0); EOS % 4.3 % (0-4.5); HEMOGLOBIN 13.2 GM/dL (10.7-15.3); LYMPH % 15.5 % (8-40); MCH 29.7 pg (25.7-33.7); MCHC 33.7 g/dl (32.0-36.0); MEAN CELL VOLUME 88.1 fl (80-96); MEAN PLT VOLUME 9.8 fl (7.5-11.1); MONO % 0.6 % (3.8-10.2); NEUT % 79.3 % (42.8-82.8); PLATELET COUNT 186 K/MM3 (134-434); RBC 4.43 M/mm3 (3.60-5.2); RDW 13.2 % (11.6-15.6); WHITE BLOOD COUNT 9.4 K/mm3 (4.0-10.0)
[2019-10-23 15:53] LABS: EPI CELLS 13.6 /HPF (0-5/HPF); HYALINE CASTS 3 /lpf (0-8); PH,URINE 5.5 (5.0-8.0); URINE APPEARANCE CLOUDY; URINE BILIRUBIN NEGATIVE (NEGATIVE); URINE COLOR YELLOW; URINE GLUCOSE (UA) NEGATIVE (NEGATIVE); URINE KETONE NEGATIVE (NEGATIVE); URINE LEUK ESTERASE 1+ (NEGATIVE); URINE NITRITE NEGATIVE (NEGATIVE); URINE PROTEIN NEGATIVE (NEGATIVE); URINE RBC 1 /hpf (0-4); URINE UROBILINOGEN 0.2 mg/dL (0.2-1.0); URINE WBC 10 /hpf (0-5)
[2019-10-23 16:15] LABS: ALBUMIN 3.8 g/dl (3.4-5.0); ALK PHOS 121 U/L (45-117); ANION GAP 10 MMOL/L (8-16); BILIRUBIN,TOTAL 0.5 mg/dL (0.2-1); BLOOD UREA NITROGEN 11.2 mg/dL (7-18); CALCIUM 8.9 mg/dL (8.5-10.1); CHLORIDE 104 mmol/L (98-107); CO2 26 mmol/L (21-32); CREATININE 0.8 mg/dL (0.55-1.3); GLUCOSE,RANDOM 133 mg/dL (74-106); POTASSIUM 3.9 mmol/L (3.5-5.1); SGOT/AST 14 U/L (15-37); SGPT/ALT 40 U/L (13-61); SODIUM 140 mmol/L (136-145); TOT PROT 6.8 g/dl (6.4-8.2)
--- NOTE | 2019-10-24 09:07 | EKG ---
Test Reason : Blood Pressure : / mmHG Vent. Rate : 099 BPM Atrial Rate : 099 BPM P-R Int : 156 ms QRS Dur : 088 ms QT Int : 348 ms P-R-T Axes : 039 -17 023 degrees QTc Int : 446 ms NORMAL SINUS RHYTHM POSSIBLE ANTERIOR INFARCT , AGE UNDETERMINED ABNORMAL ECG WHEN COMPARED WITH ECG OF 26-NOV-2018 16:01, NO SIGNIFICANT CHANGE WAS FOUND Confirmed by Shaka Michele MD ([id number]) on 10/24/2019 9:07:08 AM Referred By: Confirmed By:Shaka Michele MD
== END 2019-10-23 17:24 | disposition home or self-care (01) ==
LOC: JER 14:39
PROC: 3E033NZ Introduction of Analgesics, Hypnotics, Sedatives into Peripheral Vein, Percutaneous Approach (ICD-10-PCS; principal; 2019-10-23)
DX: B34.9 Viral infection, unspecified (principal); I10 Essential (primary) hypertension; E11.9 Type 2 diabetes mellitus without complications; Z79.84 Long term (current) use of oral hypoglycemic drugs; Z87.442 Personal history of urinary calculi
CPT/HCPCS: 36415; 71046-TC-FY; 80053; 81003; 82962; 84484; 84702; 84703; 85025; 87804; 93005; 93010; 99282-25; J0131; J7030